=== PATIENT | female | born 1990 | race Caucasian/White ===

== ENCOUNTER 2016-12-24 06:26 | Inpatient (IN) | payer BC, MEDICAID ==
[~2016-12-24 06:26] MED LIST: CARBAMAZEPINE PO; FOLIC ACID1 MG PO; KLONOPIN0.5 MG PO; MAG-OX 400400 MG/TAB PO; MOTRIN800 MG PO; PRENATAL PLUS T1 TA PO; TEGRETOL XR100 MG PO; TEGRETOL XR200 MG PO; TEGRETOL XR400 MG PO; TEGRETOL200 MG PO; TYLENOL #31 TA1 PO; VITAMIN D 22000 UNIT PO; [UNRECOGNIZED DRUG - OTHER] PO
[2016-12-24] MEDS ORDERED: FOLIC ACID1 M1 PO (07:01)
[2016-12-24] MEDS ORDERED: OSTERA TABLET1 EAC1 PO (07:02)
[2016-12-24] MEDS ORDERED: NEPHROCAPS SOFTG1 M1 PO (07:03)
[2016-12-24] MEDS ORDERED: TEGRETOL X100 MG/TAB PO ×3 (07:06→07:10)
[2016-12-24] MEDS ORDERED: GLUCOPHAGE500 M3 PO (07:08)
[2016-12-24 07:31] LABS: BASO % 0.1 % (0-2); EOS % 0.3 % (0-7); HGB-HEMOGLOBIN 11.9 gm/dl (12.0-15.5); IMMATURE GRANULOCYTES ABSOLUTE 0.05 tho/cmm (0-0.03); IMMATURE GRANULOCYTES PERCENT 0.5 % (0-0.3); LYMPH % 17.1 % (20-45); LYMPH ABSOLUTE COUNT 1.7 tho/cmm (0.8-4.5); MCH (MEAN CORPUSCULAR HGB) 30.4 pg (28.0-32.0); MCHC MEAN CORPUSCULAR HGB CONC 33.1 % (32.0-36.0); MCV (MEAN CELL VOLUME) 91.8 fl (82.0-96.0); MEAN PLATELET VOLUME 9.6 cmc (9.4-12.4); MONO % 8.8 % (0-12); MONOCYTE ABSOLUTE COUNT 0.9 tho/cmm (0.0-1.2); NEUTROPHIL ABSOLUTE COUNT 7.4 tho/cmm (1.6-8.0); NEUTROPHIL-AUTOMATED 7.4 tho/cmm (1.6-8.0); NEUTROPHILS % 73.2 % (40-80); PLATELET COUNT 211 tho/cmm (150-450); RED BLOOD COUNT 3.92 mil/cmm (4.00-5.20); RED CELL DISTRIBUTION WIDTH 14.4 % (12.4-16.4)
[2016-12-25 00:55] LABS: CORD BLOOD PH ARTERIAL 7.23 Units (7.18-7.38)
[2016-12-25 12:44] LABS: BASO % 0.1 % (0-2); EOS % 0.2 % (0-7); HCT-HEMATOCRIT 34.8 % (34.0-49.0); HGB-HEMOGLOBIN 11.7 gm/dl (12.0-15.5); IMMATURE GRANULOCYTES ABSOLUTE 0.05 tho/cmm (0-0.03); IMMATURE GRANULOCYTES PERCENT 0.3 % (0-0.3); LYMPH % 8.8 % (20-45); LYMPH ABSOLUTE COUNT 1.3 tho/cmm (0.8-4.5); MCH (MEAN CORPUSCULAR HGB) 30.7 pg (28.0-32.0); MCHC MEAN CORPUSCULAR HGB CONC 33.6 % (32.0-36.0); MCV (MEAN CELL VOLUME) 91.3 fl (82.0-96.0); MONO % 7.5 % (0-12); MONOCYTE ABSOLUTE COUNT 1.1 tho/cmm (0.0-1.2); NEUTROPHIL ABSOLUTE COUNT 12.3 tho/cmm (1.6-8.0); NEUTROPHIL-AUTOMATED 12.3 tho/cmm (1.6-8.0); NEUTROPHILS % 83.1 % (40-80); PLATELET COUNT 207 tho/cmm (150-450); RED BLOOD COUNT 3.81 mil/cmm (4.00-5.20); RED CELL DISTRIBUTION WIDTH 14.3 % (12.4-16.4); WHITE BLOOD COUNT 14.9 tho/cmm (4.0-10.0)
[2016-12-26] MEDS ORDERED: IBUPROFEN800 M1 PO (01:37)
[2016-12-26] MEDS ORDERED: LORTAB 5-325 M1 EAC1 PO (01:39)
== END 2016-12-27 11:20 | DRG 775 ==
LOC: LDR 06:26 → OBGF 12-25 03:00
PROVIDERS: ADMIT Obstetrics & Gynecology
PROC: 10E0XZZ Delivery of Products of Conception, External Approach (ICD-10-PCS; principal; 2016-12-25)
PROC: 3E033VJ Introduction of Other Hormone into Peripheral Vein, Percutaneous Approach (ICD-10-PCS; 2016-12-25)
DX: O69.2XX0 Labor and delivery complicated by other cord entanglement, with compression, not applicable or unspecified (principal); Z37.0 Single live birth; Z3A.39 39 weeks gestation of pregnancy
CPT/HCPCS: J2210; J2405; J2540; J2590; J2791